=== PATIENT | male | born 1985 | race African-American/Black ===

== ENCOUNTER 2016-10-04 10:10 | Inpatient (IN) | payer MEDICAID, OTHER ==
[~2016-10-04] VITALS: Ht 195.6 cm; Wt 147.4 kg
[2016-10-04] MEDS ORDERED: Vancomycin 1.5gm/D5W 300ml 325 ML IVPB ONE (11:00)
[2016-10-04 12:30] VITALS: BP 167/97
[2016-10-04] MEDS ORDERED: Tubing IV Cassette IV ONE (12:34)
[2016-10-04 12:39] LABS: EOSINOPHILS % (AUTO) 4.6 % (0.0-3.0); LYMPHOCYTES % (AUTO) 17.7 % (20.0-45.0); MEAN CORPUSCULAR HEMOGLOBIN 24.8 PG (27.0-31.0); MEAN CORPUSCULAR HGB CONC 31.5 G/DL (32.0-36.0); MEAN CORPUSCULAR VOLUME 79 FL (80-99); MONOCYTES % (AUTO) 8.7 % (1.0-10.0); PLATELET COUNT 332 K/UL (150-450); RED BLOOD COUNT 5.97 M/UL (4.70-6.10); RED CELL DISTRIBUTION WIDTH 12.5 % (11.6-14.8); WHITE BLOOD COUNT 5.4 K/UL (4.8-10.8)
[2016-10-04 12:50] LABS: ALANINE AMINOTRANSFERASE 16 U/L (3-41); ALBUMIN/GLOBULIN RATIO 1.1 (1.0-2.7); ANION GAP 12 (5-15); ASPARTATE AMINO TRANSFERASE 17 U/L (5-40); CALCIUM 9.3 mg/dL (8.6-10.2); CARBON DIOXIDE 28 mEQ/L (20-30); CHLORIDE 96 mEQ/L (98-107); CREATININE 1.2 mg/dL (0.7-1.2); GLOMERULAR FILTRATION RATE > 60 mL/min (>60); HEMOLYSIS 7; POTASSIUM 4.4 mEQ/L (3.4-4.9); SODIUM 136 mEQ/L (135-145); TOTAL PROTEIN 7.3 g/dL (6.6-8.7); TROPONIN I < 0.30 ng/mL (<=0.30)
[2016-10-04 13:01] LABS: CKMB < 1.5 ng/mL (< 6.7)
[2016-10-04] MEDS ORDERED: Zolpidem 5mg tab ORAL PRN (14:30)
[2016-10-04] MEDS ORDERED: LORazepam Inj 2mg/ml 1ml IV PRN (14:30)
[2016-10-04] MEDS ORDERED: Miralax 17gm pkt ORAL PRN (14:30)
[2016-10-04] MEDS ORDERED: Mylanta II UD 30ml ORAL PRN (14:30)
[2016-10-04] MEDS: Morphine Sulfate 2mg/ml Inj IVP PRN ×2 (16:11→21:18)
[2016-10-04 16:20] VITALS: BP 143/79
--- NOTE | 2016-10-04 16:42 | Emergency Room Report ---
History of Present Illness General Chief Complaint: Skin Rash/Abscess Source: Patient Present Illness HPI 31-year-old M presents to ED complaining of bilateral leg pain and swelling. States he's had pain for last month. States that one week ago he went to [facility] and was diagnosed with cellulitis. Had Doppler studies of his legs which were negative for blood clot. Was discharged on Keflex and Bactrim. States he completed the prescription but states the symptoms did not improve. Notes continued redness and spreading. Pain is 7/10, throbbing, in both legs, nonradiating. No other aggravating relieving factors. Denies fevers or chills. No aggravating relieving factors. Denies any other associated symptoms Allergies: Coded Allergies: No Known Allergies (Unverified , 10/04/16) Patient History Past Medical History: none Past Surgical History: none Pertinent Family History: none Social History: Denies: alcohol use, drug use, smoking Immunizations: UTD Reviewed Nursing Documentation: PMH: Agreed, PSxH: Agreed Nursing Documentation-PMH Past Medical History: No Stated History Hx Cardiac Problems: Yes Hx Cancer: No Hx Gastrointestinal Problems: No Hx Neurological Problems: Yes Review of Systems All Other Systems: negative except mentioned in HPI Physical Exam Vital Signs Date Time Temp Pulse Resp B/P Pulse Ox O2 Delivery O2 Flow Rate FiO2 10/04/16 10:36 98.2 99 15 119/87 98 Room Air Sp02 EP Interpretation: reviewed, normal General Appearance: no apparent distress, alert, GCS 15, non-toxic, obese Head: normocephalic, atraumatic Eyes: bilateral eye PERRL, bilateral eye normal inspection ENT: hearing grossly normal, normal pharynx, no angioedema, normal voice Neck: full range of motion, supple/symm/no masses Respiratory: chest non-tender, lungs clear, normal breath sounds, speaking full sentences Cardiovascular #1: regular rate, rhythm, no edema Cardiovascular #2: 2+ carotid (R), 2+ carotid (L), 2+ radial (R), 2+ radial (L) , 2+ dorsalis pedis (R), 2+ dorsalis pedis (L) Gastrointestinal: normal bowel sounds, non tender, soft, non-distended, no guarding, no rebound Rectal: deferred Genitourinary: normal inspection, no CVA tenderness Musculoskeletal: back normal, gait/station normal, normal range of motion, non- tender Neurologic: alert, oriented x3, responsive, motor strength/tone normal, sensory intact, speech normal Psychiatric: judgement/insight normal, memory normal, mood/affect normal, no suicidal/homicidal ideation Reflexes: 3+ bicep (R), 3+ bicep (L), 3+ tricep (R), 3+ tricep (L), 3+ knee (R) , 3+ knee (L) Skin: normal color, warm/dry, well hydrated, other - diffuse erythema/ induration to bilateral LE Lymphatic: no adenopathy Medical Decision Making Diagnostic Impression: Primary Impression: cellulities bilateral lower extrimities ER Course Hospital Course 31-year-old male presents to ED with redness, swelling to bilateral LE Differential diagnoses include: Cellulitis, DVT, abscess, rash. Clinical course Patient placed on stretcher. After initial history and physical I ordered labs , blood Cx, IVFs labs reviewed - no leukocytosis, Hb/Hct stable, no electrolyte abnormalities. i reviewed patient's records from [facility]. Doppler studies were negative for DVT antibiotics given. Case discussed with Dr Gavin and he agreed to accept the patient to his service for further care and support Diagnosis - cellulitis bilateral lower extremities Patient admitted to floor in serious condition Labs Test 10/04/16 12:00 White Blood Count 5.4 K/UL (4.8-10.8) Red Blood Count 5.97 M/UL (4.70-6.10) Hemoglobin 14.8 G/DL (14.2-18.0) Hematocrit 47.0 % (42.0-52.0) Mean Corpuscular Volume 79 FL (80-99) Mean Corpuscular Hemoglobin 24.8 PG (27.0-31.0) Mean Corpuscular Hemoglobin Concent 31.5 G/DL (32.0-36.0) Red Cell Distribution Width 12.5 % (11.6-14.8) Platelet Count 332 K/UL (150-450) Mean Platelet Volume 6.0 FL (6.5-10.1) Neutrophils (%) (Auto) 68.0 % (45.0-75.0) Lymphocytes (%) (Auto) 17.7 % (20.0-45.0) Monocytes (%) (Auto) 8.7 % (1.0-10.0) Eosinophils (%) (Auto) 4.6 % (0.0-3.0) Basophils (%) (Auto) 1.0 % (0.0-2.0) Sodium Level 136 mEQ/L (135-145) Potassium Level 4.4 mEQ/L (3.4-4.9) Chloride Level 96 mEQ/L (98-107) Carbon Dioxide Level 28 mEQ/L (20-30) Anion Gap 12 (5-15) Blood Urea Nitrogen 11 mg/dL (7-23) Creatinine 1.2 mg/dL (0.7-1.2) Estimat Glomerular Filtration Rate > 60 mL/min (>60) Glucose Level 73 mg/dL (74-106) Lactic Acid Level 0.80 mmol/L (0.66-2.22) Calcium Level 9.3 mg/dL (8.6-10.2) Total Bilirubin 0.6 mg/dL (0.0-1.2) Aspartate Amino Transf (AST/SGOT) 17 U/L (5-40) Alanine Aminotransferase (ALT/SGPT) 16 U/L (3-41) Alkaline Phosphatase 81 U/L (40-129) Total Creatine Kinase 117 U/L (38-174) Creatine Kinase MB < 1.5 ng/mL (< 6.7) Creatine Kinase MB Relative Index Troponin I < 0.30 ng/mL (<=0.30) Total Protein 7.3 g/dL (6.6-8.7) Albumin 3.9 g/dL (3.5-5.2) Globulin 3.4 g/dL Albumin/Globulin Ratio 1.1 (1.0-2.7) Last Vital Signs Date Time Temp Pulse Resp B/P Pulse Ox O2 Delivery O2 Flow Rate FiO2 10/04/16 16:20 98.2 97 18 143/79 99 Room Air Status: improved Disposition: ADMITTED INPATIENT Condition: Serious Referrals: NOT CHOSEN GIOVANNA/,REFERRING (PCP) ONUR TOPETE M.D. Oct 04, 2016 16:42
[2016-10-04] MEDS: Cefepime HCl 1 GM in D5W 55 ML IV SCH (17:12)
--- NOTE | 2016-10-04 17:22 | History and Physical ---
History of Present Illness General Date patient seen: Oct 04, 2016 Reason for Hospitalization: Skin Rash/Abscess Present Illness HPI 31-year-old male presented to ED complaining of bilateral leg pain and swelling. He's had pain for last month. He went to [facility] and was diagnosed with cellulitis. Had Doppler studies of his legs which were negative for blood clot. He waas discharged on Keflex and Bactrim. States he completed the prescription but states the symptoms did not improve. No aggravating relieving factors. Denies any other associated symptoms Allergies: Coded Allergies: No Known Allergies (Unverified , 10/04/16) Patient History Healthcare decision maker Resuscitation status Full Code Advanced Directive on File Past Medical/Surgical History Past Medical/Surgical History: (1) Cellulitis Review of Systems All Other Systems: negative except mentioned in HPI Physical Exam General Appearance: WD/WN Lines, tubes and drains: peripheral, central line HEENT: normocephalic, atraumatic Neck: non-tender, normal alignment Respiratory/Chest: chest wall non-tender, lungs clear Breasts: no masses Cardiovascular/Chest: normal peripheral pulses, normal rate Abdomen: normal bowel sounds, non tender Genitourinary/Rectal: normal genital exam Extremities: normal range of motion, non-tender Skin Exam: rash - both lower extremeties Last 24 Hour Vital Signs Date Time Temp Pulse Resp B/P Pulse Ox O2 Delivery O2 Flow Rate FiO2 10/04/16 16:20 98.2 97 18 143/79 99 Room Air 10/04/16 13:20 16 170/80 98 Room Air 10/04/16 12:30 98.2 86 18 167/97 100 Room Air 10/04/16 10:36 98.2 99 15 119/87 98 Room Air Laboratory Tests Test 10/04/16 12:00 White Blood Count 5.4 K/UL (4.8-10.8) Red Blood Count 5.97 M/UL (4.70-6.10) Hemoglobin 14.8 G/DL (14.2-18.0) Hematocrit 47.0 % (42.0-52.0) Mean Corpuscular Volume 79 FL (80-99) L Mean Corpuscular Hemoglobin 24.8 PG (27.0-31.0) L Mean Corpuscular Hemoglobin Concent 31.5 G/DL (32.0-36.0) L Red Cell Distribution Width 12.5 % (11.6-14.8) Platelet Count 332 K/UL (150-450) Mean Platelet Volume 6.0 FL (6.5-10.1) L Neutrophils (%) (Auto) 68.0 % (45.0-75.0) Lymphocytes (%) (Auto) 17.7 % (20.0-45.0) L Monocytes (%) (Auto) 8.7 % (1.0-10.0) Eosinophils (%) (Auto) 4.6 % (0.0-3.0) H Basophils (%) (Auto) 1.0 % (0.0-2.0) Sodium Level 136 mEQ/L (135-145) Potassium Level 4.4 mEQ/L (3.4-4.9) Chloride Level 96 mEQ/L (98-107) L Carbon Dioxide Level 28 mEQ/L (20-30) Anion Gap 12 (5-15) Blood Urea Nitrogen 11 mg/dL (7-23) Creatinine 1.2 mg/dL (0.7-1.2) Estimat Glomerular Filtration Rate > 60 mL/min (>60) Glucose Level 73 mg/dL (74-106) L Lactic Acid Level 0.80 mmol/L (0.66-2.22) Calcium Level 9.3 mg/dL (8.6-10.2) Total Bilirubin 0.6 mg/dL (0.0-1.2) Aspartate Amino Transf (AST/SGOT) 17 U/L (5-40) Alanine Aminotransferase (ALT/SGPT) 16 U/L (3-41) Alkaline Phosphatase 81 U/L (40-129) Total Creatine Kinase 117 U/L (38-174) Creatine Kinase MB < 1.5 ng/mL (< 6.7) Creatine Kinase MB Relative Index Troponin I < 0.30 ng/mL (<=0.30) Total Protein 7.3 g/dL (6.6-8.7) Albumin 3.9 g/dL (3.5-5.2) Globulin 3.4 g/dL Albumin/Globulin Ratio 1.1 (1.0-2.7) Height (Feet): 6 Height (Inches): 5.00 Weight (Pounds): 325 Medications Current Medications Medications (Trade) Dose Ordered Sig/Ken Route PRN Reason Start Time Stop Time Status Last Admin Dose Admin Acetaminophen (Tylenol) 650 mg Q4H PRN ORAL fever 10/04/16 14:30 11/03/16 14:29 Al Hydroxide/Mg Hydroxide (Mylanta II) 30 ml Q6H PRN ORAL dyspepsia 10/04/16 14:30 11/03/16 14:29 Cefepime HCl 1 gm/ Dextrose 55 ml @ 110 mls/hr Q12HR@0500,1700 IV 10/04/16 17:00 10/11/16 16:59 10/04/16 17:12 Dextrose (Dextrose 50%) STAT PRN IV Hypoglycemia 10/04/16 14:30 11/03/16 14:29 Heparin Sodium (Porcine) (Heparin 5000 units/ml) 5,000 units EVERY 12 HOURS SUBQ 10/04/16 21:00 11/03/16 20:59 Lorazepam (Ativan 2mg/ml 1ml) 0.5 mg Q4H PRN IV For Anxiety 10/04/16 14:30 10/11/16 14:29 Morphine Sulfate (Morphine Sulfate) 1 mg Q4H PRN IVP For Pain 10/04/16 14:30 10/11/16 14:29 10/04/16 16:11 Ondansetron HCl (Zofran) 4 mg Q6H PRN IVP Nausea & Vomiting 10/04/16 14:30 11/03/16 14:29 Polyethylene Glycol (Miralax) 17 gm HSPRN PRN ORAL Constipation 10/04/16 14:30 11/03/16 14:29 Vancomycin HCl 1 ea 1 ea DAILY PRN MISC Per rx protocol 10/04/16 14:30 11/03/16 14:29 Vancomycin HCl/ Dextrose (Vancomycin/D5W) 325 ml @ 162.5 mls/ hr Q8HR IVPB 10/04/16 22:00 10/09/16 21:59 Zolpidem Tartrate (Ambien) 5 mg HSPRN PRN ORAL Insomnia 10/04/16 14:30 11/03/16 14:29 Assessment/Plan Problem List: (1) Cellulitis ICD Codes: L03.90 - Cellulitis, unspecified SNOMED: [id number] Assessment/Plan IV antibiotics check Blood cultures f/u wbc ID evaluation ISIS LEONARD Oct 04, 2016 17:22
[2016-10-04] MEDS: Vancomycin 1.5 GM in D5W 325 ML IVPB SCH (21:03)
[2016-10-04] MEDS: Heparin 5000 units/ml inj SUBQ SCH (21:05)
[2016-10-05] VITALS (7 sets, daily range): BP systolic 115–147; BP diastolic 43–83
[2016-10-05] MEDS: Cefepime HCl 1 GM in D5W 55 ML IV SCH (04:31)
[2016-10-05] MEDS: Vancomycin 1.5 GM in D5W 325 ML IVPB SCH ×3 (05:25→21:08)
[2016-10-05 06:32] LABS: BASOPHILS % (AUTO) 1.4 % (0.0-2.0); EOSINOPHILS % (AUTO) 4.9 % (0.0-3.0); MEAN CORPUSCULAR HGB CONC 31.8 G/DL (32.0-36.0); MEAN CORPUSCULAR VOLUME 79 FL (80-99); MEAN PLATELET VOLUME 6.1 FL (6.5-10.1); MONOCYTES % (AUTO) 11.3 % (1.0-10.0); NEUTROPHILS % (AUTO) 60.5 % (45.0-75.0); PLATELET COUNT 312 K/UL (150-450); RED BLOOD COUNT 5.57 M/UL (4.70-6.10); RED CELL DISTRIBUTION WIDTH 12.5 % (11.6-14.8); WHITE BLOOD COUNT 5.2 K/UL (4.8-10.8)
[2016-10-05 07:11] LABS: ALANINE AMINOTRANSFERASE 15 U/L (3-41); ANION GAP 13 (5-15); ASPARTATE AMINO TRANSFERASE 15 U/L (5-40); CALCIUM 8.9 mg/dL (8.6-10.2); CARBON DIOXIDE 26 mEQ/L (20-30); CHLORIDE 98 mEQ/L (98-107); CHOLESTEROL 122 mg/dL (< 200); CHOLESTEROL/HDL RATIO 4.4 (3.3-4.4); CREATININE 1.1 mg/dL (0.7-1.2); GLOMERULAR FILTRATION RATE > 60 mL/min (>60); HEMOLYSIS 8; LDL CHOLESTEROL (CALC.) 75 mg/dL (60-99); POTASSIUM 4.1 mEQ/L (3.4-4.9); SODIUM 137 mEQ/L (135-145); TOTAL PROTEIN 6.5 g/dL (6.6-8.7)
[2016-10-05 07:30] LABS: HEMOGLOBIN A1C 5.5 % (< 6.0)
[2016-10-05] MEDS: Heparin 5000 units/ml inj SUBQ SCH ×2 (08:25→20:38)
[2016-10-05] MEDS: Morphine Sulfate 2mg/ml Inj IVP PRN ×2 (08:55→20:32)
[2016-10-05] MEDS ORDERED: Influenza Virus Vaccine 0.5ml IM ONE (09:00)
[2016-10-05] MEDS: DiphenhydrAMINE 50mg/ml Inj IVP PRN ×2 (09:05→23:35)
--- NOTE | 2016-10-05 09:33 | Consultation ---
Consult Note Assessment/Plan ID [facility] # [id number] LYNN FAJARDO M.D. Oct 05, 2016 09:33
[2016-10-05] MEDS ORDERED: Tubing IV Secondary IV ONE (16:47)
[2016-10-05] MEDS ORDERED: NS 275ml ONE (16:47)
--- NOTE | 2016-10-05 17:25 | Pulmonology Progress Note ---
Assessment/Plan Problems: (1) Cellulitis Assessment/Plan improving venous doppler negative continue antibioitcs check cultures Subjective ROS Limited/Unobtainable: No Interval Events: slightly improving Allergies: Coded Allergies: No Known Allergies (Unverified , 10/04/16) Objective Last 24 Hour Vital Signs Date Time Temp Pulse Resp B/P Pulse Ox O2 Delivery O2 Flow Rate FiO2 10/05/16 16:29 98.2 101 20 145/80 97 Room Air 10/05/16 12:00 97.9 94 19 131/72 99 Room Air 10/05/16 08:02 97.7 92 20 147/83 99 Room Air 10/05/16 04:35 98.8 95 18 120/61 97 Room Air 10/05/16 04:00 99.3 103 18 115/43 97 Room Air 10/05/16 00:00 99.3 107 19 142/67 100 Room Air Intake and Output 10/04/16 10/05/16 19:00 07:00 Intake Total 55 ml 942.5 ml Output Total 900 ml 1350 ml Balance -845 ml -407.5 ml Intake Oral 0 ml 400 ml IV Total 55 ml 542.5 ml Output Urine Total 900 ml 1350 ml # Voids 1 1 General Appearance: WD/WN HEENT: normocephalic, atraumatic Respiratory/Chest: chest wall non-tender, lungs clear Cardiovascular: normal peripheral pulses, normal rate Abdomen: normal bowel sounds, soft, non tender Extremities: no cyanosis, no clubbing 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 Laboratory Tests 10/05/16 05:30: White Blood Count 5.2, Red Blood Count 5.57, Hemoglobin 13.9L, Hematocrit 43.8, Mean Corpuscular Volume 79L, Mean Corpuscular Hemoglobin 25.0L, Mean Corpuscular Hemoglobin Concent 31.8L, Red Cell Distribution Width 12.5, Platelet Count 312, Mean Platelet Volume 6.1L, Neutrophils (%) (Auto) 60.5, Lymphocytes (%) (Auto) 22.0, Monocytes (%) (Auto) 11.3H, Eosinophils (%) (Auto) 4.9H, Basophils (%) (Auto) 1.4, Sodium Level 137, Potassium Level 4.1, Chloride Level 98, Carbon Dioxide Level 26, Anion Gap 13, Blood Urea Nitrogen 6L, Creatinine 1.1, Estimat Glomerular Filtration Rate > 60, Glucose Level 105, Hemoglobin A1c 5.5, Calcium Level 8.9, Total Bilirubin 0.8, Aspartate Amino Transf (AST/SGOT) 15, Alanine Aminotransferase (ALT/SGPT) 15, Alkaline Phosphatase 69, Total Protein 6.5L, Albumin 3.4L, Globulin 3.1, Albumin/ Globulin Ratio 1.0, Triglycerides Level 94, Cholesterol Level 122, LDL Cholesterol 75, HDL Cholesterol 28, Cholesterol/HDL Ratio 4.4, Thyroid Stimulating Hormone (TSH) 2.720 10/05/16 12:55: Vancomycin Level Trough 11.1 Current Medications Medications (Trade) Dose Ordered Sig/Ken Route PRN Reason Start Time Stop Time Status Last Admin Dose Admin Acetaminophen (Tylenol) 650 mg Q4H PRN ORAL fever 10/04/16 14:30 11/03/16 14:29 Al Hydroxide/Mg Hydroxide (Mylanta II) 30 ml Q6H PRN ORAL dyspepsia 10/04/16 14:30 11/03/16 14:29 Dextrose (Dextrose 50%) STAT PRN IV Hypoglycemia 10/04/16 14:30 11/03/16 14:29 Diphenhydramine HCl (Benadryl) 25 mg Q4H PRN IVP Itching 10/05/16 09:00 11/04/16 08:59 10/05/16 09:05 Heparin Sodium (Porcine) (Heparin 5000 units/ml) 5,000 units EVERY 12 HOURS SUBQ 10/04/16 21:00 11/03/16 20:59 10/05/16 08:25 Influenza Virus Vaccine (Flu Vaccine) 0.5 ml ONCE ONCE IM 10/05/16 09:00 10/05/16 09:01 UNV Lorazepam (Ativan 2mg/ml 1ml) 0.5 mg Q4H PRN IV For Anxiety 10/04/16 14:30 10/11/16 14:29 Morphine Sulfate (Morphine Sulfate) 1 mg Q4H PRN IVP For Pain 10/04/16 14:30 10/11/16 14:29 10/05/16 08:55 Ondansetron HCl (Zofran) 4 mg Q6H PRN IVP Nausea & Vomiting 10/04/16 14:30 11/03/16 14:29 Polyethylene Glycol (Miralax) 17 gm HSPRN PRN ORAL Constipation 10/04/16 14:30 11/03/16 14:29 Vancomycin HCl 1 ea 1 ea DAILY PRN MISC Per rx protocol 10/04/16 14:30 11/03/16 14:29 Vancomycin HCl/ Dextrose (Vancomycin/D5W) 325 ml @ 162.5 mls/ hr Q8HR IVPB 10/04/16 22:00 10/09/16 21:59 10/05/16 14:49 Zolpidem Tartrate (Ambien) 5 mg HSPRN PRN ORAL Insomnia 10/04/16 14:30 11/03/16 14:29 ISIS LEONARD Oct 05, 2016 17:25
--- NOTE | 2016-10-05 22:09 | Consultation ---
DATE OF CONSULTATION: INFECTIOUS DISEASE CONSULTATION CONSULTING PHYSICIAN: Jose Angel King M.D. REFERRING PHYSICIAN: Virgil Gaivn M.D. REASON FOR CONSULTATION: Evaluation of the patient for left lower extremity cellulitis. HISTORY OF PRESENT ILLNESS: The patient is a 31-year-old male with past medical history significant for obesity was admitted to swelling and erythema of the left lower extremity. The patient does not recall any prior Infectious Disease consultation has been requested for further evaluation of the patient and antibiotic management. PAST MEDICAL HISTORY: As mentioned above. ALLERGIES: No known drug allergies. SOCIAL HISTORY: Negative for alcohol, drug abuse, or smoking. FAMILY HISTORY: Noncontributory. REVIEW OF SYSTEMS: HEENT: No recent change in vision or hearing. Pulmonary: No cough or shortness of breath. Cardiovascular: No chest pain or palpitations. Gastrointestinal/Abdomen: No nausea or vomiting. Genitourinary: No dysuria. Musculoskeletal: As mentioned above. Neurologic: No seizures. PHYSICAL EXAMINATION: VITAL SIGNS: Temperature 97.7, pulse 86, respiratory rate 18, blood pressure 147/83. HEENT: Mild pale conjunctivae. No icterus. NECK: No lymphadenopathy. CHEST: Coarse breath sounds. HEART: S1 and S2. ABDOMEN: Soft. EXTREMITIES: The patient has left lower extremity edema, erythema, and tenderness. NEUROLOGIC: Awake and alert. LABORATORY AND DIAGNOSTIC DATA: White blood cell count 5.2, hemoglobin 13.9, platelets 312,000. BUN 6 and creatinine 1.1. ALT, AST, alkaline phosphatase within normal range. ASSESSMENT: The patient is a 31-year-old male with past medical significant for obesity who has left lower extremity cellulitis and edema, also possible superimposed contact dermatitis in view of having some pruritus in the area. However the patient does not recall contact with any substance contributing to contact dermatitis. In view of the patient's presentation, we will cover the patient with IV vancomycin for possible gram-positive organisms. PLAN: 1. We will continue the patient on IV vancomycin. 2. Monitor CBC. 3. Monitor BMP. 4. Monitor blood cultures. 5. Based on patient's clinical course and labs, we will do further recommendation. Thank you, Dr. Gavin, for allowing me to participate in the care of this patient. I will follow the patient with you during this hospitalization. Jose Angel King M.D. DR: Oren JOB#: [id number] CC:
[2016-10-06] VITALS: BP 126/66
[2016-10-06 04:00] VITALS: BP 122/77
[2016-10-06] MEDS: Vancomycin 1.5 GM in D5W 325 ML IVPB SCH ×3 (05:28→22:09)
[2016-10-06 06:25] LABS: BASOPHILS % (AUTO) 1.6 % (0.0-2.0); EOSINOPHILS % (AUTO) 6.2 % (0.0-3.0); MEAN CORPUSCULAR HEMOGLOBIN 25.1 PG (27.0-31.0); MEAN CORPUSCULAR VOLUME 78 FL (80-99); MEAN PLATELET VOLUME 5.9 FL (6.5-10.1); MONOCYTES % (AUTO) 15.7 % (1.0-10.0); NEUTROPHILS % (AUTO) 47.5 % (45.0-75.0); PLATELET COUNT 311 K/UL (150-450); RED BLOOD COUNT 5.47 M/UL (4.70-6.10); RED CELL DISTRIBUTION WIDTH 12.4 % (11.6-14.8); WHITE BLOOD COUNT 4.6 K/UL (4.8-10.8)
[2016-10-06 07:09] LABS: ALANINE AMINOTRANSFERASE 15 U/L (3-41); ANION GAP 10 (5-15); ASPARTATE AMINO TRANSFERASE 16 U/L (5-40); CALCIUM 9.1 mg/dL (8.6-10.2); CARBON DIOXIDE 28 mEQ/L (20-30); CHLORIDE 102 mEQ/L (98-107); GLOMERULAR FILTRATION RATE > 60 mL/min (>60); HEMOLYSIS 3; MAGNESIUM 1.8 mg/dL (1.7-2.5); PHOSPHORUS 3.2 mg/dL (2.5-4.8); POTASSIUM 4.3 mEQ/L (3.4-4.9); SODIUM 140 mEQ/L (135-145); TOTAL PROTEIN 6.6 g/dL (6.6-8.7)
[2016-10-06 08:00] VITALS: BP 140/75
[2016-10-06] MEDS: Heparin 5000 units/ml inj SUBQ SCH ×2 (08:34→20:07)
[2016-10-06] MEDS: Morphine Sulfate 2mg/ml Inj IVP PRN ×3 (08:48→20:05)
--- NOTE | 2016-10-06 09:59 | Infectious Diseases Prog Note ---
Assessment/Plan Assessment/Plan A: The patient is a 31-year-old male with Left lower extremity cellulitis Obesity was admitted t PLAN: cont pt on IV vancomycin d# 2 Monitor BMP/ CBC Monitor blood cultures Subjective Constitutional: Denies: anorexia, chills, drenching sweats, fatigue, fever, no symptoms, other Allergies: Coded Allergies: No Known Allergies (Unverified , 10/04/16) Objective Vital Signs Last 24 Hour Vital Signs Date Time Temp Pulse Resp B/P Pulse Ox O2 Delivery O2 Flow Rate FiO2 10/06/16 09:18 97.3 10/06/16 08:00 97.7 95 20 140/75 97 Room Air 10/06/16 04:00 97.3 92 20 122/77 97 Room Air 10/06/16 00:00 98.1 96 18 126/66 95 Room Air 10/05/16 20:21 97.9 90 18 140/70 98 Room Air 10/05/16 16:29 98.2 101 20 145/80 97 Room Air 10/05/16 12:00 97.9 94 19 131/72 99 Room Air Height (Feet): 6 Height (Inches): 5.00 Weight (Pounds): 325 HEENT: anicteric Respiratory/Chest: normal breath sounds, respiratory distress Cardiovascular: no gallop/murmur Abdomen: no organomegaly Extremities: other - Lt leg edema and erythema + Microbiology Date/Time Source Procedure Growth Status 10/04/16 12:10 Blood Blood Culture - Preliminary NO GROWTH AFTER 24 HOURS Resulted 10/04/16 12:00 Blood Blood Culture - Preliminary NO GROWTH AFTER 24 HOURS Resulted Laboratory Tests Test 10/05/16 12:55 10/06/16 04:35 Vancomycin Level Trough 11.1 ug/mL (5.0-12.0) White Blood Count 4.6 K/UL (4.8-10.8) L Red Blood Count 5.47 M/UL (4.70-6.10) Hemoglobin 13.7 G/DL (14.2-18.0) L Hematocrit 42.8 % (42.0-52.0) Mean Corpuscular Volume 78 FL (80-99) L Mean Corpuscular Hemoglobin 25.1 PG (27.0-31.0) L Mean Corpuscular Hemoglobin Concent 32.0 G/DL (32.0-36.0) Red Cell Distribution Width 12.4 % (11.6-14.8) Platelet Count 311 K/UL (150-450) Mean Platelet Volume 5.9 FL (6.5-10.1) L Neutrophils (%) (Auto) 47.5 % (45.0-75.0) Lymphocytes (%) (Auto) 29.0 % (20.0-45.0) Monocytes (%) (Auto) 15.7 % (1.0-10.0) H Eosinophils (%) (Auto) 6.2 % (0.0-3.0) H Basophils (%) (Auto) 1.6 % (0.0-2.0) Sodium Level 140 mEQ/L (135-145) Potassium Level 4.3 mEQ/L (3.4-4.9) Chloride Level 102 mEQ/L (98-107) Carbon Dioxide Level 28 mEQ/L (20-30) Anion Gap 10 (5-15) Blood Urea Nitrogen 6 mg/dL (7-23) L Creatinine 1.0 mg/dL (0.7-1.2) Estimat Glomerular Filtration Rate > 60 mL/min (>60) Glucose Level 97 mg/dL (74-106) Calcium Level 9.1 mg/dL (8.6-10.2) Phosphorus Level 3.2 mg/dL (2.5-4.8) Magnesium Level 1.8 mg/dL (1.7-2.5) Total Bilirubin 0.6 mg/dL (0.0-1.2) Aspartate Amino Transf (AST/SGOT) 16 U/L (5-40) Alanine Aminotransferase (ALT/SGPT) 15 U/L (3-41) Alkaline Phosphatase 69 U/L (40-129) Total Protein 6.6 g/dL (6.6-8.7) Albumin 3.4 g/dL (3.5-5.2) L Globulin 3.2 g/dL Albumin/Globulin Ratio 1.0 (1.0-2.7) Current Medications Medications (Trade) Dose Ordered Sig/Ken Route PRN Reason Start Time Stop Time Status Last Admin Dose Admin Acetaminophen (Tylenol) 650 mg Q4H PRN ORAL fever 10/04/16 14:30 11/03/16 14:29 Al Hydroxide/Mg Hydroxide (Mylanta II) 30 ml Q6H PRN ORAL dyspepsia 10/04/16 14:30 11/03/16 14:29 Dextrose (Dextrose 50%) STAT PRN IV Hypoglycemia 10/04/16 14:30 11/03/16 14:29 Diphenhydramine HCl (Benadryl) 25 mg Q4H PRN IVP Itching 10/05/16 09:00 11/04/16 08:59 10/05/16 23:35 Heparin Sodium (Porcine) (Heparin 5000 units/ml) 5,000 units EVERY 12 HOURS SUBQ 10/04/16 21:00 11/03/16 20:59 10/06/16 08:34 Influenza Virus Vaccine (Flu Vaccine) 0.5 ml ONCE ONCE IM 10/05/16 09:00 10/05/16 09:01 UNV Lorazepam (Ativan 2mg/ml 1ml) 0.5 mg Q4H PRN IV For Anxiety 10/04/16 14:30 10/11/16 14:29 Morphine Sulfate (Morphine Sulfate) 1 mg Q4H PRN IVP For Pain 10/04/16 14:30 10/11/16 14:29 10/06/16 08:48 Ondansetron HCl (Zofran) 4 mg Q6H PRN IVP Nausea & Vomiting 10/04/16 14:30 11/03/16 14:29 Polyethylene Glycol (Miralax) 17 gm HSPRN PRN ORAL Constipation 10/04/16 14:30 11/03/16 14:29 Vancomycin HCl 1 ea 1 ea DAILY PRN MISC Per rx protocol 10/04/16 14:30 11/03/16 14:29 Vancomycin HCl/ Dextrose (Vancomycin/D5W) 325 ml @ 162.5 mls/ hr Q8HR IVPB 10/04/16 22:00 10/09/16 21:59 10/06/16 05:28 Zolpidem Tartrate (Ambien) 5 mg HSPRN PRN ORAL Insomnia 10/04/16 14:30 11/03/16 14:29 LYNN FAJARDO M.D. Oct 06, 2016 09:59
[2016-10-06 12:00] VITALS: BP 124/64
[2016-10-06 16:00] VITALS: BP 158/78
[2016-10-06] MEDS: DiphenhydrAMINE 50mg/ml Inj IVP PRN ×2 (16:20→22:11)
[2016-10-06] MEDS ORDERED: NS 275ml ONE (17:18)
[2016-10-06 20:00] VITALS: BP 160/68
[2016-10-07] VITALS: BP 123/66
[2016-10-07] MEDS: Morphine Sulfate 2mg/ml Inj IVP PRN ×5 (00:12→20:12)
[2016-10-07 03:54] VITALS: BP 129/71
[2016-10-07] MEDS: Vancomycin 1.5 GM in D5W 325 ML IVPB SCH ×3 (06:00→21:05)
[2016-10-07] MEDS: DiphenhydrAMINE 50mg/ml Inj IVP PRN ×3 (06:42→20:12)
[2016-10-07 08:00] VITALS: BP 134/67
[2016-10-07] MEDS: Heparin 5000 units/ml inj SUBQ SCH ×2 (09:20→20:13)
[2016-10-07 12:22] VITALS: BP 135/68
--- NOTE | 2016-10-07 12:30 | Diagnostic Imaging Report ---
APPROVED REPORT CPT Code: 91548 Present Symptoms Lower Extremity Pain: Bilateral Lower Extremity Edema: Left BILATERAL: Imaging reveals a patent deep venous system bilaterally. There is no evidence of thrombus within the femoral, popliteal or tibial segments. The greater saphenous veins are also within normal limits. Doppler indicates normal spontaneous flow within these segments.
[2016-10-07 16:00] VITALS: BP 155/73
--- NOTE | 2016-10-07 17:30 | Pulmonology Progress Note ---
Assessment/Plan Problems: (1) Cellulitis Assessment/Plan rash is smaller, less pain improving venous doppler negative continue antibioitcs check cultures on vancomycin dc home when ok with ID Subjective ROS Limited/Unobtainable: No Constitutional: Reports: no symptoms Allergies: Coded Allergies: No Known Allergies (Unverified , 10/04/16) Objective Last 24 Hour Vital Signs Date Time Temp Pulse Resp B/P Pulse Ox O2 Delivery O2 Flow Rate FiO2 10/07/16 12:22 98.4 88 18 135/68 98 Room Air 10/07/16 12:12 98.4 10/07/16 08:00 97.9 101 20 134/67 98 Room Air 10/07/16 03:54 97.7 97 18 129/71 100 Room Air 10/07/16 00:00 97.7 84 18 123/66 97 Room Air 10/06/16 20:00 98.1 86 20 160/68 96 Room Air Intake and Output 10/06/16 10/07/16 18:59 06:59 Intake Total 1447.5 ml 822.5 ml Output Total 300 ml Balance 1447.5 ml 522.5 ml Intake Oral 960 ml 660 ml IV Total 487.5 ml 162.5 ml Output Urine Total 300 ml # Voids 2 2 # Bowel Movements 1 General Appearance: WD/WN, no acute distress Respiratory/Chest: chest wall non-tender, normal breath sounds Cardiovascular: normal peripheral pulses, regular rhythm Abdomen: normal bowel sounds, soft, non tender Genitourinary: normal external genitalia Extremities: no clubbing 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, no motor/sensory deficits Current Medications Medications (Trade) Dose Ordered Sig/Ken Route PRN Reason Start Time Stop Time Status Last Admin Dose Admin Acetaminophen (Tylenol) 650 mg Q4H PRN ORAL fever 10/04/16 14:30 11/03/16 14:29 Al Hydroxide/Mg Hydroxide (Mylanta II) 30 ml Q6H PRN ORAL dyspepsia 10/04/16 14:30 11/03/16 14:29 Dextrose (Dextrose 50%) STAT PRN IV Hypoglycemia 10/04/16 14:30 11/03/16 14:29 Diphenhydramine HCl (Benadryl) 25 mg Q4H PRN IVP Itching 10/05/16 09:00 11/04/16 08:59 10/07/16 16:13 Heparin Sodium (Porcine) (Heparin 5000 units/ml) 5,000 units EVERY 12 HOURS SUBQ 10/04/16 21:00 11/03/16 20:59 10/07/16 09:20 Influenza Virus Vaccine (Flu Vaccine) 0.5 ml ONCE ONCE IM 10/05/16 09:00 10/05/16 09:01 UNV Lorazepam (Ativan 2mg/ml 1ml) 0.5 mg Q4H PRN IV For Anxiety 10/04/16 14:30 10/11/16 14:29 Morphine Sulfate (Morphine Sulfate) 1 mg Q4H PRN IVP For Pain 10/04/16 14:30 10/11/16 14:29 10/07/16 16:13 Ondansetron HCl (Zofran) 4 mg Q6H PRN IVP Nausea & Vomiting 10/04/16 14:30 11/03/16 14:29 Polyethylene Glycol (Miralax) 17 gm HSPRN PRN ORAL Constipation 10/04/16 14:30 11/03/16 14:29 Vancomycin HCl 1 ea 1 ea DAILY PRN MISC Per rx protocol 10/04/16 14:30 11/03/16 14:29 Vancomycin HCl/ Dextrose (Vancomycin/D5W) 325 ml @ 162.5 mls/ hr Q8HR IVPB 10/04/16 22:00 10/09/16 21:59 10/07/16 13:35 Zolpidem Tartrate (Ambien) 5 mg HSPRN PRN ORAL Insomnia 10/04/16 14:30 11/03/16 14:29 ISIS LEONARD Oct 07, 2016 17:30
--- NOTE | 2016-10-07 17:30 | Pulmonology Progress Note ---
Assessment/Plan Problems: (1) Cellulitis Assessment/Plan improving venous doppler negative continue antibioitcs check cultures on vancomycin dc home when ok with ID Subjective Interval Events: late note for 10/06: redness getting smaller Allergies: Coded Allergies: No Known Allergies (Unverified , 10/04/16) Objective Last 24 Hour Vital Signs Date Time Temp Pulse Resp B/P Pulse Ox O2 Delivery O2 Flow Rate FiO2 10/07/16 12:22 98.4 88 18 135/68 98 Room Air 10/07/16 12:12 98.4 10/07/16 08:00 97.9 101 20 134/67 98 Room Air 10/07/16 03:54 97.7 97 18 129/71 100 Room Air 10/07/16 00:00 97.7 84 18 123/66 97 Room Air 10/06/16 20:00 98.1 86 20 160/68 96 Room Air Intake and Output 10/06/16 10/07/16 18:59 06:59 Intake Total 1447.5 ml 822.5 ml Output Total 300 ml Balance 1447.5 ml 522.5 ml Intake Oral 960 ml 660 ml IV Total 487.5 ml 162.5 ml Output Urine Total 300 ml # Voids 2 2 # Bowel Movements 1 General Appearance: no acute distress HEENT: PERRL Respiratory/Chest: chest wall non-tender Abdomen: normal bowel sounds, soft, non tender Genitourinary: normal external genitalia Extremities: no cyanosis Skin: no ulcers Neurologic/Psychiatric: no motor/sensory deficits Lymphatic: no neck adenopathy Current Medications Medications (Trade) Dose Ordered Sig/Ken Route PRN Reason Start Time Stop Time Status Last Admin Dose Admin Acetaminophen (Tylenol) 650 mg Q4H PRN ORAL fever 10/04/16 14:30 11/03/16 14:29 Al Hydroxide/Mg Hydroxide (Mylanta II) 30 ml Q6H PRN ORAL dyspepsia 10/04/16 14:30 11/03/16 14:29 Dextrose (Dextrose 50%) STAT PRN IV Hypoglycemia 10/04/16 14:30 11/03/16 14:29 Diphenhydramine HCl (Benadryl) 25 mg Q4H PRN IVP Itching 10/05/16 09:00 11/04/16 08:59 10/07/16 16:13 Heparin Sodium (Porcine) (Heparin 5000 units/ml) 5,000 units EVERY 12 HOURS SUBQ 10/04/16 21:00 11/03/16 20:59 10/07/16 09:20 Influenza Virus Vaccine (Flu Vaccine) 0.5 ml ONCE ONCE IM 10/05/16 09:00 10/05/16 09:01 UNV Lorazepam (Ativan 2mg/ml 1ml) 0.5 mg Q4H PRN IV For Anxiety 10/04/16 14:30 10/11/16 14:29 Morphine Sulfate (Morphine Sulfate) 1 mg Q4H PRN IVP For Pain 10/04/16 14:30 10/11/16 14:29 10/07/16 16:13 Ondansetron HCl (Zofran) 4 mg Q6H PRN IVP Nausea & Vomiting 10/04/16 14:30 11/03/16 14:29 Polyethylene Glycol (Miralax) 17 gm HSPRN PRN ORAL Constipation 10/04/16 14:30 11/03/16 14:29 Vancomycin HCl 1 ea 1 ea DAILY PRN MISC Per rx protocol 10/04/16 14:30 11/03/16 14:29 Vancomycin HCl/ Dextrose (Vancomycin/D5W) 325 ml @ 162.5 mls/ hr Q8HR IVPB 10/04/16 22:00 10/09/16 21:59 10/07/16 13:35 Zolpidem Tartrate (Ambien) 5 mg HSPRN PRN ORAL Insomnia 10/04/16 14:30 11/03/16 14:29 ISIS LEONARD Oct 07, 2016 17:30
[2016-10-07 20:00] VITALS: BP 142/67
--- NOTE | 2016-10-07 21:26 | Infectious Diseases Prog Note ---
Assessment/Plan Assessment/Plan A: The patient is a 31-year-old male with Left lower extremity cellulitis improving Obesity PLAN: cont pt on IV vancomycin d# 3 Monitor BMP/ CBC Monitor blood cultures Subjective Constitutional: Denies: anorexia, chills, drenching sweats, fatigue, fever, no symptoms, other Allergies: Coded Allergies: No Known Allergies (Unverified , 10/04/16) Objective Vital Signs Last 24 Hour Vital Signs Date Time Temp Pulse Resp B/P Pulse Ox O2 Delivery O2 Flow Rate FiO2 10/07/16 16:00 97.9 83 20 155/73 99 Room Air 10/07/16 12:22 98.4 88 18 135/68 98 Room Air 10/07/16 12:12 98.4 10/07/16 08:00 97.9 101 20 134/67 98 Room Air 10/07/16 03:54 97.7 97 18 129/71 100 Room Air 10/07/16 00:00 97.7 84 18 123/66 97 Room Air Height (Feet): 6 Height (Inches): 5.00 Weight (Pounds): 325 HEENT: atraumatic Respiratory/Chest: normal breath sounds Cardiovascular: regularly irregular Abdomen: no organomegaly Current Medications Medications (Trade) Dose Ordered Sig/Ken Route PRN Reason Start Time Stop Time Status Last Admin Dose Admin Acetaminophen (Tylenol) 650 mg Q4H PRN ORAL fever 10/04/16 14:30 11/03/16 14:29 Al Hydroxide/Mg Hydroxide (Mylanta II) 30 ml Q6H PRN ORAL dyspepsia 10/04/16 14:30 11/03/16 14:29 Dextrose (Dextrose 50%) STAT PRN IV Hypoglycemia 10/04/16 14:30 11/03/16 14:29 Diphenhydramine HCl (Benadryl) 25 mg Q4H PRN IVP Itching 10/05/16 09:00 11/04/16 08:59 10/07/16 20:12 Heparin Sodium (Porcine) (Heparin 5000 units/ml) 5,000 units EVERY 12 HOURS SUBQ 10/04/16 21:00 11/03/16 20:59 10/07/16 20:13 Influenza Virus Vaccine (Flu Vaccine) 0.5 ml ONCE ONCE IM 10/05/16 09:00 10/05/16 09:01 UNV Lorazepam (Ativan 2mg/ml 1ml) 0.5 mg Q4H PRN IV For Anxiety 10/04/16 14:30 10/11/16 14:29 Morphine Sulfate (Morphine Sulfate) 1 mg Q4H PRN IVP For Pain 10/04/16 14:30 10/11/16 14:29 10/07/16 20:12 Ondansetron HCl (Zofran) 4 mg Q6H PRN IVP Nausea & Vomiting 10/04/16 14:30 11/03/16 14:29 Polyethylene Glycol (Miralax) 17 gm HSPRN PRN ORAL Constipation 10/04/16 14:30 11/03/16 14:29 Vancomycin HCl 1 ea 1 ea DAILY PRN MISC Per rx protocol 10/04/16 14:30 11/03/16 14:29 Vancomycin HCl/ Dextrose (Vancomycin/D5W) 325 ml @ 162.5 mls/ hr Q8HR IVPB 10/04/16 22:00 10/09/16 21:59 10/07/16 21:05 Zolpidem Tartrate (Ambien) 5 mg HSPRN PRN ORAL Insomnia 10/04/16 14:30 11/03/16 14:29 LYNN FAJARDO M.D. Oct 07, 2016 21:26
[2016-10-08] VITALS: BP 115/67
[2016-10-08] MEDS: DiphenhydrAMINE 50mg/ml Inj IVP PRN (00:19)
[2016-10-08] MEDS: Morphine Sulfate 2mg/ml Inj IVP PRN ×3 (00:21→13:38)
[2016-10-08 04:00] VITALS: BP 123/70
[2016-10-08] MEDS: Vancomycin 1.5 GM in D5W 325 ML IVPB SCH ×2 (05:36→13:37)
[2016-10-08 08:00] VITALS: BP 153/65
[2016-10-08] MEDS: Heparin 5000 units/ml inj SUBQ SCH (09:04)
--- NOTE | 2016-10-08 10:48 | Infectious Diseases Prog Note ---
Assessment/Plan Assessment/Plan A: The patient is a 31-year-old male with Left lower extremity cellulitis improving Obesity PLAN: cont pt on IV vancomycin d# 4 , ok to DC on Clinda and Keflex x 1 wk ( Rx in Chart ) Monitor BMP/ CBC Monitor blood cultures Subjective Constitutional: Denies: anorexia, chills, drenching sweats, fatigue, fever, no symptoms, other Allergies: Coded Allergies: No Known Allergies (Unverified , 10/04/16) Objective Vital Signs Last 24 Hour Vital Signs Date Time Temp Pulse Resp B/P Pulse Ox O2 Delivery O2 Flow Rate FiO2 10/08/16 08:00 97.3 91 18 153/65 96 Room Air 10/08/16 04:00 97.8 81 18 123/70 Room Air 10/08/16 00:00 97.5 78 18 115/67 95 Room Air 10/07/16 20:00 97.5 77 19 142/67 96 Room Air 10/07/16 16:00 97.9 83 20 155/73 99 Room Air 10/07/16 12:22 98.4 88 18 135/68 98 Room Air 10/07/16 12:12 98.4 Height (Feet): 6 Height (Inches): 5.00 Weight (Pounds): 325 HEENT: atraumatic Respiratory/Chest: lungs clear Cardiovascular: normal rate Abdomen: no organomegaly Current Medications Medications (Trade) Dose Ordered Sig/Ken Route PRN Reason Start Time Stop Time Status Last Admin Dose Admin Acetaminophen (Tylenol) 650 mg Q4H PRN ORAL fever 10/04/16 14:30 11/03/16 14:29 Al Hydroxide/Mg Hydroxide (Mylanta II) 30 ml Q6H PRN ORAL dyspepsia 10/04/16 14:30 11/03/16 14:29 Dextrose (Dextrose 50%) STAT PRN IV Hypoglycemia 10/04/16 14:30 11/03/16 14:29 Diphenhydramine HCl (Benadryl) 25 mg Q4H PRN IVP Itching 10/05/16 09:00 11/04/16 08:59 10/08/16 00:19 Heparin Sodium (Porcine) (Heparin 5000 units/ml) 5,000 units EVERY 12 HOURS SUBQ 10/04/16 21:00 3/29/17 20:59 10/08/16 09:04 Influenza Virus Vaccine (Flu Vaccine) 0.5 ml ONCE ONCE IM 10/05/16 09:00 10/05/16 09:01 UNV Lorazepam (Ativan 2mg/ml 1ml) 0.5 mg Q4H PRN IV For Anxiety 10/04/16 14:30 10/11/16 14:29 Morphine Sulfate (Morphine Sulfate) 1 mg Q4H PRN IVP For Pain 10/04/16 14:30 10/11/16 14:29 10/08/16 09:02 Ondansetron HCl (Zofran) 4 mg Q6H PRN IVP Nausea & Vomiting 10/04/16 14:30 11/03/16 14:29 Polyethylene Glycol (Miralax) 17 gm HSPRN PRN ORAL Constipation 10/04/16 14:30 11/03/16 14:29 Vancomycin HCl 1 ea 1 ea DAILY PRN MISC Per rx protocol 10/04/16 14:30 11/03/16 14:29 Vancomycin HCl/ Dextrose (Vancomycin/D5W) 325 ml @ 162.5 mls/ hr Q8HR IVPB 10/04/16 22:00 10/09/16 21:59 10/08/16 05:36 Zolpidem Tartrate (Ambien) 5 mg HSPRN PRN ORAL Insomnia 10/04/16 14:30 11/03/16 14:29 10/08/16 00:31 LYNN FAJARDO M.D. Oct 08, 2016 10:48
[2016-10-08 12:00] VITALS: BP 147/76
--- NOTE | 2016-10-08 12:42 | Pulmonology Progress Note ---
Assessment/Plan Assessment/Plan ASSESSMENT BLE cellulitis L >R morbid obesity PLAN OF CARE MS floor abx ID follows blood cx negative ID cleared for dc on oral abx venous Duplex BLE negative pain management PT/OT bowel regimen dc today, scripts given by ID case discussed and evaluated by supervising physician Subjective Allergies: Coded Allergies: No Known Allergies (Unverified , 10/04/16) Subjective afebrile, no leukocytosis LLE with less pain ambulates without difficulties Objective Last 24 Hour Vital Signs Date Time Temp Pulse Resp B/P Pulse Ox O2 Delivery O2 Flow Rate FiO2 10/08/16 09:32 97.3 10/08/16 08:00 97.3 91 18 153/65 96 Room Air 10/08/16 04:00 97.8 81 18 123/70 Room Air 10/08/16 00:00 97.5 78 18 115/67 95 Room Air 10/07/16 20:00 97.5 77 19 142/67 96 Room Air 10/07/16 16:00 97.9 83 20 155/73 99 Room Air Intake and Output 10/07/16 10/08/16 19:00 07:00 Intake Total 1045.0 ml 1055.0 ml Balance 1045.0 ml 1055.0 ml Intake Oral 720 ml 730 ml IV Total 325.0 ml 325.0 ml # Voids 4 # Bowel Movements 2 General Appearance: WD/WN, no acute distress HEENT: normocephalic, atraumatic, anicteric, mucous membranes moist, PERRL Respiratory/Chest: lungs clear, no respiratory distress, no accessory muscle use Cardiovascular: normal rate, regular rhythm, no JVD Abdomen: normal bowel sounds, soft, non tender, non distended Genitourinary: normal external genitalia Extremities: no edema Skin: other - left lower extremity with edema, erythema, non tender Neurologic/Psychiatric: no motor/sensory deficits, alert, oriented x 3, responsive Musculoskeletal: normal muscle bulk Current Medications Medications (Trade) Dose Ordered Sig/Ken Route PRN Reason Start Time Stop Time Status Last Admin Dose Admin Acetaminophen (Tylenol) 650 mg Q4H PRN ORAL fever 10/04/16 14:30 11/03/16 14:29 Al Hydroxide/Mg Hydroxide (Mylanta II) 30 ml Q6H PRN ORAL dyspepsia 10/04/16 14:30 11/03/16 14:29 Dextrose (Dextrose 50%) STAT PRN IV Hypoglycemia 10/04/16 14:30 11/03/16 14:29 Diphenhydramine HCl (Benadryl) 25 mg Q4H PRN IVP Itching 10/05/16 09:00 11/04/16 08:59 10/08/16 00:19 Heparin Sodium (Porcine) (Heparin 5000 units/ml) 5,000 units EVERY 12 HOURS SUBQ 10/04/16 21:00 11/03/16 20:59 10/08/16 09:04 Lorazepam (Ativan 2mg/ml 1ml) 0.5 mg Q4H PRN IV For Anxiety 10/04/16 14:30 10/11/16 14:29 Morphine Sulfate (Morphine Sulfate) 1 mg Q4H PRN IVP For Pain 10/04/16 14:30 10/11/16 14:29 10/08/16 09:02 Ondansetron HCl (Zofran) 4 mg Q6H PRN IVP Nausea & Vomiting 10/04/16 14:30 11/03/16 14:29 Polyethylene Glycol (Miralax) 17 gm HSPRN PRN ORAL Constipation 10/04/16 14:30 11/03/16 14:29 Vancomycin HCl 1 ea 1 ea DAILY PRN MISC Per rx protocol 10/04/16 14:30 11/03/16 14:29 Vancomycin HCl/ Dextrose (Vancomycin/D5W) 325 ml @ 162.5 mls/ hr Q8HR IVPB 10/04/16 22:00 10/09/16 21:59 10/08/16 05:36 Zolpidem Tartrate (Ambien) 5 mg HSPRN PRN ORAL Insomnia 10/04/16 14:30 11/03/16 14:29 10/08/16 00:31 Opal Thompson NP ([facility]) Oct 08, 2016 12:42
[2016-10-08] MEDS ORDERED: CEPHALEXIN500 MG ORAL (14:41)
[2016-10-08] MEDS ORDERED: CLINDAMYCIN HC150 MG ORAL (14:41)
--- NOTE | 2016-10-08 14:42 | Discharge Instructions ---
Discharge Instructions Discharge Instructions Follow up with: PMD Call MD/Return to Hospital if: fever, worsening pain LLE, no improving after antibitiocis completed Diet: diabetic calorie control Activity: resume normal activities, as tolerated For Congestive Heart Failure Reminder Report to your physician any weight gain of 5 pounds or more in one week. Jay ([facility])Opal NP Oct 08, 2016 14:42
[2016-10-08] MEDS ORDERED: NS 275ml ONE (18:16)
[2016-10-08] MEDS ORDERED: Tubing IV Secondary IV ONE (18:16)
[2016-10-08 18:30] VITALS: BP 150/90
--- NOTE | 2016-10-11 08:45 | Discharge Summary ---
Discharge Summary Hospital Course Date of Admission Oct 04, 2016 at 12:30 Date of Discharge Oct 08, 2016 at 18:17 Admitting Diagnosis BILATERAL LOWER EXTIMITY CELLULITIES HPI Aroldo Langley is a 31 year old male who was admitted on Oct 04, 2016 at 12 :30 for Bilateral Lower Extremity Cellulitis Hospital Course dc summary#[id number] Discharge Medications New Medications: Cephalexin* (Keflex*) 500 Mg Capsule 500 MG ORAL EVERY 6 HOURS, #40 CAP Clindamycin Hcl* (Clindamycin Hcl*) 150 Mg Capsule 300 MG ORAL FOUR TIMES A DAY, #40 CAP Discharge Condition Upon Discharge: stable Discharge Disposition Patient was discharged to Home (01) Discharge Diagnoses: Discharge Instructions Discharge Instructions Follow up with: PMD Call MD/Return to Hospital if: fever, worsening pain LLE, no improving after antibitiocis completed Activity: resume normal activities, as tolerated Opal Thompson NP ([facility]tein) Oct 11, 2016 08:44
--- NOTE | 2016-10-12 00:08 | Discharge Summary 2 SIG ---
DATE OF ADMISSION: 10/04/2016 DATE OF DISCHARGE: 10/08/2016 REASON FOR ADMISSION: 31-year-old obese male with no significant past medical history, presented to emergency room complaining of bilateral leg pain and swelling for one month. Apparently, he was in [facility] and was diagnosed with cellulitis. Venous duplex at that time was negative. He was discharged home on oral Keflex and Bactrim without improvement in his condition. He presented to emergency department for further evaluation. He denied fevers, chills. No history of diabetes. Physical examination was consistent with bilateral lower extremities cellulitis. He was afebrile. No leukocytosis. The patient was admitted for IV antibiotics since he failed outpatient oral antibiotics. ADMITTING DIAGNOSES: 1. Bilateral lower extremities cellulitis, left more than right. 2. Morbid obesity. HOSPITAL STAY: The patient was admitted to Med/Surg floor. ID consult was requested. Blood cultures were negative. Venous duplex of bilateral lower extremities was negative for acute DVT. Pain management provided. [id number]. Lipid panel within normal limits. The patient was working with physical and occupational therapists. Bowel regimen was provided. ID cleared for discharge on oral antibiotics, after blood culture came back negative. Patient afebrile, no leukocytosis. The patient was stable for discharge. DISCHARGE DIAGNOSES: 1. Bilateral lower extremities cellulitis, left more than right. 2. Morbid obesity. DISCHARGE MEDICATIONS: See medication reconciliation list. The patient was discharged on Keflex and clindamycin for additional 10 days. DISCHARGE INSTRUCTIONS: The patient was discharged home. Follow up with the primary medical doctor. The patient was instructed to go to emergency room or urgent care if condition not improved after completion of antibiotics. The patient was also instructed on measures to lose weight. Virgil Gavin M.D. Opal Kangmoo N.PSamantha DR: ANGEL JOB#: [id number] CC: RHIANNON
== END 2016-10-08 18:17 | disposition home or self-care (01) | DRG 383 ==
LOC: EMR 11:17 → 4W 12:30 → EDBEDREQ 12:51
DX: L03.116 Cellulitis of left lower limb (principal); E66.01 Morbid (severe) obesity due to excess calories; L03.115 Cellulitis of right lower limb; Z68.38 Body mass index [BMI] 38.0-38.9, adult
CPT/HCPCS: 36415; 80053; 80061; 80202; 82550; 82553; 83036; 83605; 83735; 84100; 84443; 84484; 85025; 87040; 93970